=== PATIENT | female | born 1940 | race Caucasian/White ===

== ENCOUNTER → 2021-03-30 | Outpatient (CLI) | payer OTHER ==
[2021-03-30] VITALS (8 sets, daily range): BP systolic 105–124; BP diastolic 66–74
[~2021-03-30] VITALS: Ht 160 cm; Wt 53.5 kg
[~2021-03-30] MED LIST: REGENERON 1200mg/250ml NS 250 ML IV ONE
== END | disposition home or self-care (01) ==
LOC: ER 13:06
PROVIDERS: ATTEND Internal Medicine
DX: U07.1 COVID-19 (principal)
CPT/HCPCS: J7050; M0243; Q0243